=== PATIENT | male | born 1995 | race Caucasian/White ===

== ENCOUNTER 2016-12-10 15:20 | Inpatient (IN) | payer BC, OTHER ==
[~2016-12-10] VITALS: Ht 182.9 cm; Wt 109.9 kg
[~2016-12-10 15:20] MED LIST: INSU100V SQ
--- NOTE | 2016-12-10 15:43 | PHYS DOC ---
Past Medical History Past Medical History: Diabetes-Type I Past Surgical History: Other Additional Past Surgical Histo: L ANKLE Alcohol Use: None Drug Use: None Adult General HPI HPI Patient is a 21 year old male who presents with hypoglycemia. Patient is type I diabetic and has insulin pump. He reportedly became altered at home due to hypoglycemia. His father tried to give him frosting to eat and called 911. EMS reports on their arrival patient was combative; FSBS at that time was in 80s. They were unable to get IV started due to combativeness, however they did give IM glucagon. On arrival to ED patient's mental status improved, although he says he still feels a little confused. His R knee is mildly sore, otherwise he denies any other acute complaints. Review of Systems Review of Systems Constitutional: Denies fever or chills Eyes: Denies change in visual acuity or eye pain HENT: Denies nasal congestion or sore throat Respiratory: Denies cough or shortness of breath Cardiovascular: Denies chest pain GI: Denies abdominal pain, nausea, vomiting, bloody stools or diarrhea : Denies dysuria or hematuria Musculoskeletal: R knee sore. Denies back pain or other joint pain Integument: Denies rash or skin lesions Neurologic: AMS. Denies headache, focal weakness or sensory changes Current Medications Current Medications Current Medications Medications (Trade) Dose Ordered Sig/Jamal Start Time Stop Time Status Last Admin Dose Admin Acetaminophen (Tylenol) 650 mg PRN Q4HRS PRN 12/10/16 18:00 12/11/16 17:59 Dextrose 12.5 gm PRN Q15MIN PRN 12/10/16 18:00 Famotidine (Pepcid) 20 mg 1X ONCE 12/10/16 17:00 12/10/16 17:01 DC 12/10/16 18:40 20 MG Morphine Sulfate 2 mg PRN Q2HR PRN 12/10/16 18:00 12/11/16 17:59 Ondansetron HCl (Zofran) 4 mg PRN Q8HRS PRN 12/10/16 18:00 12/11/16 17:59 Allergies Allergies Allergies Coded Allergies Type Severity Reaction Last Updated Verified No Known Drug Allergies 01/18/15 No Physical Exam Physical Exam Constitutional: Well developed, well nourished, non-toxic appearance HENT: Normocephalic, atraumatic, bilateral external ears normal Eyes: PERRL, EOMI, conjunctiva normal, no discharge Neck: Normal range of motion, no stridor Cardiovascular: Heart rate normal, regular rhythm, no murmur Lungs & Thorax: Bilateral breath sounds clear to auscultation Abdomen: Bowel sounds normal, soft, non-distended, no TTP Skin: Warm, dry, no erythema, no rash Extremities: No obvious deformity, no edema; R knee visually unremarkable compared to L, no point TTP; neurovascularly intact throughout Neurologic: Slowed response but oriented X 3, GCS 15, CN II-XII grossly intact, strength intact and symmetrical throughout, sensation to light touch intact throughout, no dystaxia noted Current Patient Data Vital Signs Vital Signs Date Time Temp Pulse Resp B/P Pulse Ox O2 Delivery O2 Flow Rate FiO2 12/10/16 16:25 76 18 150/67 95 Room Air 12/10/16 15:42 97.7 97.7 Lab Values Laboratory Tests Test 12/10/16 15:42 12/10/16 15:51 12/10/16 16:19 White Blood Count 7.2x10^3/uL (4.0-11.0) Red Blood Count 5.32x10^6/uL (4.30-5.70) Hemoglobin 15.8g/dL (13.0-17.5) Hematocrit 46.9% (39.0-53.0) Mean Corpuscular Volume 88fL (79-100) Mean Corpuscular Hemoglobin 30pg (25-35) Mean Corpuscular Hemoglobin Concent 34g/dL (31-37) Red Cell Distribution Width 14.1% (11.5-14.5) Platelet Count 255x10^3/uL (140-400) Neutrophils (%) (Auto) 71% (31-73) Lymphocytes (%) (Auto) 20% (24-48) L Monocytes (%) (Auto) 7% (0-9) Eosinophils (%) (Auto) 1% (0-3) Basophils (%) (Auto) 0% (0-3) Neutrophils # (Auto) 5.1x10^3uL (1.8-7.7) Lymphocytes # (Auto) 1.5x10^3/uL (1.0-4.8) Monocytes # (Auto) 0.5x10^3/uL (0.0-1.1) Eosinophils # (Auto) 0.1x10^3/uL (0.0-0.7) Basophils # (Auto) 0.0x10^3/uL (0.0-0.2) Sodium Level 141mmol/L (136-145) Potassium Level 3.8mmol/L (3.5-5.1) Chloride Level 104mmol/L (98-107) Carbon Dioxide Level 22mmol/L (21-32) Anion Gap 15 (6-14) H Blood Urea Nitrogen 10mg/dL (8-26) Creatinine 1.2mg/dL (0.7-1.3) Estimated GFR (Cockcroft-Gault) 76.4 Glucose Level 215mg/dL (70-99) H Glucose (Fingerstick) 218mg/dL (70-99) H 196mg/dL (70-99) H Calcium Level 9.3mg/dL (8.5-10.1) Total Bilirubin 1.0mg/dL (0.2-1.0) Direct Bilirubin 0.1mg/dL (0.0-0.2) Aspartate Amino Transferase (AST) 34U/L (15-37) Alanine Aminotransferase (ALT) 33U/L (16-63) Alkaline Phosphatase 75U/L (46-116) Total Protein 7.6g/dL (6.4-8.2) Albumin 4.0g/dL (3.4-5.0) Laboratory Tests 12/10/16 15:42 Laboratory Tests 12/10/16 15:42 EKG EKG EKG (my read): sinus rhythm, rate 58, normal axis, intervals wnl except RR minimally prolonged at 1039ms, nonspecific ST changes Radiology/Procedures Radiology/Procedures CT head: IMPRESSION No acute intracranial abnormality is seen. CXR: IMPRESSION: No acute cardiopulmonary abnormality is detected. Course & Med Decision Making Course & Med Decision Making Pertinent Labs and Imaging studies reviewed. (See chart for details) Patient is 21 year old male who presents with AMS. Possibly due to hypoglycemia , however FSBS per EMS was ok (possibly had been lower before he was given frosting) and ok on arrival to ED. Will check labs, EKG to evaluate. While in ED patient had repeated vomiting and remains slightly confused, although he is oriented x3. Anti-emetic ordered, CXR and CT head ordered as well to further screen for alternate cause of AMS. Imaging results as above. Blood work largely unremarkable. Discussed results with patient and parents. Given persistent vomiting and confusion, will admit for further evaluation. Discussed with Dr. Quigley, will admit under her care. [place] Disclaimer Dragon Disclaimer This electronic medical record was generated, in whole or in part, using a voice recognition dictation system. Departure Departure Impression: Primary Impression: Altered mental status Disposition: 09 ADMITTED INPATIENT Admitting Physician: Other Condition: STABLE Referrals: CISCO JASON (PCP) GEORGE BHAKTA MD Dec 10, 2016 15:43
[2016-12-10 15:48] LABS: BASO % 0 % (0-3); EOS % 1 % (0-3); HEMATOCRIT 46.9 % (39.0-53.0); HEMOGLOBIN 15.8 g/dL (13.0-17.5); LYMPH # 1.5 x10^3/uL (1.0-4.8); LYMPH % 20 % (24-48); MEAN CORPUSCULAR HEMOGLOBIN 30 pg (25-35); MEAN CORPUSCULAR HGB CONC 34 g/dL (31-37); MEAN CORPUSCULAR VOLUME 88 fL (79-100); MONO % 7 % (0-9); NEUT % 71 % (31-73); PLATELET COUNT 255 x10^3/uL (140-400); RED BLOOD COUNT 5.32 x10^6/uL (4.30-5.70); RED CELL DISTRIBUTION WIDTH 14.1 % (11.5-14.5); WHITE BLOOD COUNT 7.2 x10^3/uL (4.0-11.0)
--- NOTE | 2016-12-10 16:02 | RAD ---
Portable chest, 12/10/2016: History: Altered mental status The heart size and pulmonary vascularity are normal. No pulmonary infiltrates are seen. There is no evidence of pleural fluid. IMPRESSION: No acute cardiopulmonary abnormality is detected.
[2016-12-10 16:17] LABS: DIRECT BILIRUBIN 0.1 mg/dL (0.0-0.2); TOTAL PROTEIN 7.6 g/dL (6.4-8.2)
[2016-12-10] MEDS ORDERED: ONDANSETRON PF 4 MG/2 ML VIAL. ONE (16:17)
[2016-12-10] MEDS ORDERED: ONDANSETRON PF 4 MG/2 ML VIAL. IV ONE ×2 (16:30→17:00)
[2016-12-10 16:47] LABS: CALCIUM 9.3 mg/dL (8.5-10.1); CREATININE 1.2 mg/dL (0.7-1.3); GFR 76.4; POTASSIUM 3.8 mmol/L (3.5-5.1)
[2016-12-10] MEDS ORDERED: FAMOTIDINE 20 MG/2 ML VIAL IVP ONE (17:00)
--- NOTE | 2016-12-10 17:30 | RAD ---
PROCEDURE CT head without contrast HISTORY Altered mental status TECHNIQUE Noncontrast axial cross sectional CT scanning of the head was performed. FINDINGS No acute intracranial hemorrhage or midline shift or mass-effect or hydrocephalus or extra-axial fluid collection is seen. No focal hypodense area is seen to indicate an acute infarct or edema radiographically. No skull fracture or pneumocephalus is seen. No opacification of the mastoid sinuses or the paranasal sinuses is seen. The maxillary sinuses are not completely seen in this study. IMPRESSION No acute intracranial abnormality is seen. Electronically signed by: Steve Gilman MD (Dec 10, 2016 17:29:09)
[2016-12-10] MEDS ORDERED: ACETAMINOPHEN 325 MG TABLET. PO PRN (18:00)
[2016-12-10] MEDS ORDERED: ONDANSETRON PF 4 MG/2 ML VIAL. IV PRN ×2 (18:00→23:15)
[2016-12-10] MEDS ORDERED: MORPHINE SULFATE 2 MG/ML DISP.SYRIN. IV PRN (18:00)
[2016-12-10] MEDS ORDERED: DEXTROSE 50% 25 GM / 50ML DISP.SYRIN. IV PRN ×2 (18:00→23:15)
[2016-12-10] MEDS ORDERED: PROCHLORPERAZINE 10 MG/2 ML VIAL. IV ONE (19:15)
[2016-12-10 20:20] LABS: BILIRUBIN,URINE NEGATIVE (NEG); GLUCOSE,URINE 500 mg/dL (NEG); NITRITE,URINE NEGATIVE (NEG); PROTEIN,URINE NEGATIVE (NEG-TRACE); UROBILINOGEN,URINE 0.2 mg/dL (0.2 mg/dL)
[2016-12-10 20:26] LABS: BARBITURATES NEG (NEG); BENZODIAZEPINES NEG (NEG); CANNABINOIDS NEG (NEG); COCAINE NEG (NEG); ETHANOL, URINE NEG (NEG); METHADONE NEG (NEG); OPIATES NEG (NEG); PHENCYCLIDINE NEG (NEG)
[2016-12-10 20:32] LABS: BACTERIA,URINE FEW /HPF (0-FEW); SQUAMOUS EPITHELIAL CELL,UR FEW /LPF
[2016-12-10] MEDS ORDERED: OMEP20TA PO (22:59)
[2016-12-10] MEDS ORDERED: ASA/APAP/CAFFEINE 250/250/65MG TABLET. PO PRN (23:45)
[2016-12-10] MEDS: METOCLOPRAMIDE HCL 10 MG/2 ML VIAL. IV SCH (23:45)
[2016-12-10] MEDS: POTASSIUM CHLORIDE 30 MEQ in IV 1/2 NORMAL SALINE 1,000 ML IV SCH (23:46)
--- NOTE | 2016-12-11 00:01 | HP ---
ADMIT DATE: 12/10/2016 CHIEF COMPLAINT: Nausea, vomiting, and hypoglycemia. HISTORY OF PRESENT ILLNESS: The patient is a 21-year-old gentleman with diabetes type 1 - onset at age 12, who presented to the Emergency Room with nausea and vomiting since earlier this morning. He relates that he was actually still in bed, more or less unconscious when his father came home at 2:00 in the afternoon and woke him up. He went down to the family room, sat on the couch, and passed out. Father brought him into the Emergency Room. At home, his blood sugar upon immediate checking actually had been 80. In the Emergency Room, his blood sugar actually was 215. He had retching and nausea without any honest vomiting. However, he had not been eating or drinking anything the entire day. He denies any fevers or chills, or any other problems. No sick contacts, was not out last night, and did not drink alcohol. PAST MEDICAL HISTORY: Diabetes mellitus type 1 since age 12, has insulin pump. FAMILY HISTORY: Mother with diabetes, adult-onset. SOCIAL HISTORY: He is a student, has taken this semester off. Denies any toxic habits. ALLERGIES: No known drug allergies. MEDICATIONS: MAR reviewed and reconciled with home medications. REVIEW OF SYSTEMS: Positive for nausea and vomiting as above. Generalized fatigue, malaise. No fevers. The rest of organ-system review is negative. PHYSICAL EXAMINATION: VITAL SIGNS: From today show a blood pressure of 150/67, heart rate of 76, and respiratory rate is 18. He is afebrile. GENERAL: This is an overweight 21-year-old gentleman, awake, alert, in no acute distress. HEENT: Shows no scleral icterus. NECK: Supple. LUNGS: Clear to auscultation bilaterally. CARDIOVASCULAR: Has regular rate and rhythm without any murmurs. ABDOMEN: Has positive bowel sounds, soft, and nontender. EXTREMITIES: Show no edema. Insulin pump is in his left lower abdomen. LABORATORY DATA: CBC from today shows a WBC of 7.2, hemoglobin 15.8, and platelets of 255. Chemistries with a BUN and creatinine of 10 and 1.2. Electrolytes within normal. Carbon dioxide at 22. Glucose is in the 200-300 range. LFTs within normal. Toxicology screen is completely negative. A UA is negative for infectious signs. IMAGING: CT of the head in the Emergency Room shows no acute intracranial abnormality. Chest x-ray likewise is within normal limits. ASSESSMENT AND PLAN: The patient is a 21-year-old gentleman, presenting after a fainting spell at home. If his initial blood sugar is to be believed, he actually was relatively low compared to now despite not having eaten anything over the past 24 hours. He may have had a hypoglycemic episode at the time, resulting in some confusion. Also, with ongoing symptoms, cannot rule out that he had a viral gastroenteritis, which may have led to dehydration and current symptoms. We will replete his fluids and electrolytes with IV for now. Keep him n.p.o. As Zofran in the ER was insufficient to control his nausea, we will start him on Reglan around the clock. He still has Zofran p.r.n., which can be alternated with Reglan as needed. We will monitor his blood glucoses. He would prefer insulin sliding scale and nurse-administered insulin. On questioning, he relates that he is taking 81 units of insulin per 24 hours. He is unable to tell me his sliding scale for meal doses, and cannot recall his last blood sugar test in the past few days or if he took his blood sugar this morning. For stomach protection, we will start him on PPI IV. We will re-evaluate in the morning and potentially get him discharged if all his symptoms are resolved. ZHANG LYNNE MD DR: MJ/jing JOB#: [id number] / [id number] RINKU
[2016-12-11 00:24] VITALS: BP 134/47
[2016-12-11 04:42] LABS: BASO % 0 % (0-3); EOS % 0 % (0-3); HEMOGLOBIN 14.6 g/dL (13.0-17.5); LYMPH # 0.7 x10^3/uL (1.0-4.8); LYMPH % 3 % (24-48); MEAN CORPUSCULAR HEMOGLOBIN 30 pg (25-35); MEAN CORPUSCULAR HGB CONC 34 g/dL (31-37); MEAN CORPUSCULAR VOLUME 87 fL (79-100); MONO % 7 % (0-9); NEUT % 90 % (31-73); PLATELET COUNT 282 x10^3/uL (140-400); RED BLOOD COUNT 4.93 x10^6/uL (4.30-5.70); RED CELL DISTRIBUTION WIDTH 13.9 % (11.5-14.5); WHITE BLOOD COUNT 19.5 x10^3/uL (4.0-11.0)
[2016-12-11 04:56] LABS: CALCIUM 9.3 mg/dL (8.5-10.1); CREATININE 1.5 mg/dL (0.7-1.3); GFR 59.1; POTASSIUM 4.8 mmol/L (3.5-5.1)
[2016-12-11] MEDS: POTASSIUM CHLORIDE 30 MEQ in IV 1/2 NORMAL SALINE 1,000 ML IV SCH ×2 (06:21→13:32)
[2016-12-11 07:14] LABS: PLT ESTIMATE ADEQUATE (ADEQUATE)
[2016-12-11 08:00] VITALS: BP 137/45
[2016-12-11] MEDS: INSULIN ASPART 300 UNITS/3 ML INSULN.PEN SQ SCH ×3 (08:00→17:00)
[2016-12-11] MEDS ORDERED: INSULIN ASPART 300 UNITS/3 ML INSULN.PEN SQ ONE ×4 (08:30→17:00)
[2016-12-11] MEDS: METOCLOPRAMIDE HCL 10 MG/2 ML VIAL. IV SCH ×3 (08:49→20:33)
[2016-12-11] MEDS: PANTOPRAZOLE IV PUSH 40 MG VIAL. IVP SCH (08:49)
--- NOTE | 2016-12-11 09:08 | EKG ---
[facility] [address] [place] [address] Test Date: 2016-12-10 Test Time: 16:09:14 Pat Name: OSCAR ARNOLD Department: Room: 4 Gender: M Qualitative Field Coordinator: : 1995 Requested By: GEORGE BHAKTA Order Number: [id number] Reading MD: Arielle Oliveros Measurements Intervals [place] Rate: 58 P: 28 CA: 176 QRS: 34 QRSD: 100 T: 28 QT: 386 QTc: 382 Interpretive Statements SINUS RHYTHM NO SPECIFIC ECG ABNORMALITIES RI6.01 No previous ECG available for comparison Electronically Signed On 12-11-2016 20:22:55 CDT by Arielle Oliveros
--- NOTE | 2016-12-11 09:57 | PDOC ---
PROGRESS NOTES Chief Complaint Chief Complaint cc: hypoglycemia A/P Severe Hypoglycemia, Now Hyperglycemia. Metabolic acidosis, not POA Leucocytosis, no POA Nausea and vomiting. Plan Insulin pump has been stopped IV Zofran and Reglan for nausea and vomiting IV NS at 150mls/hr BMP q2 hrs, monitor serum ketones and urine ketones No oblivious source of infection Monitor wbc Advance diet as tolerated. Transfer to ICU if any ketones present in the urine. Prognosis guarded, History of Present Illness History of Present Illness nausea and vomiting no fever no chills. Vitals Vitals Vital Signs Date Time Temp Pulse Resp B/P Pulse Ox O2 Delivery O2 Flow Rate FiO2 12/11/16 08:00 97.7 100 12 137/45 Room Air 96.0 97.7 12/11/16 03:54 98 Physical Exam General: Alert, Oriented X3 Heart: Normal S1, Normal S2 Lungs: Clear Abdomen: Normal bowel sounds, Soft Extremities: No clubbing Skin: No rashes Labs LABS Laboratory Tests Test 12/10/16 15:42 12/10/16 15:51 12/10/16 16:19 12/10/16 20:02 White Blood Count 7.2x10^3/uL (4.0-11.0) Red Blood Count 5.32x10^6/uL (4.30-5.70) Hemoglobin 15.8g/dL (13.0-17.5) Hematocrit 46.9% (39.0-53.0) Mean Corpuscular Volume 88fL (79-100) Mean Corpuscular Hemoglobin 30pg (25-35) Mean Corpuscular Hemoglobin Concent 34g/dL (31-37) Red Cell Distribution Width 14.1% (11.5-14.5) Platelet Count 255x10^3/uL (140-400) Neutrophils (%) (Auto) 71% (31-73) Lymphocytes (%) (Auto) 20% (24-48) Monocytes (%) (Auto) 7% (0-9) Eosinophils (%) (Auto) 1% (0-3) Basophils (%) (Auto) 0% (0-3) Neutrophils # (Auto) 5.1x10^3uL (1.8-7.7) Lymphocytes # (Auto) 1.5x10^3/uL (1.0-4.8) Monocytes # (Auto) 0.5x10^3/uL (0.0-1.1) Eosinophils # (Auto) 0.1x10^3/uL (0.0-0.7) Basophils # (Auto) 0.0x10^3/uL (0.0-0.2) Sodium Level 141mmol/L (136-145) Potassium Level 3.8mmol/L (3.5-5.1) Chloride Level 104mmol/L (98-107) Carbon Dioxide Level 22mmol/L (21-32) Anion Gap 15 (6-14) Blood Urea Nitrogen 10mg/dL (8-26) Creatinine 1.2mg/dL (0.7-1.3) Estimated GFR (Cockcroft-Gault) 76.4 Glucose Level 215mg/dL (70-99) Glucose (Fingerstick) 218mg/dL (70-99) 196mg/dL (70-99) Calcium Level 9.3mg/dL (8.5-10.1) Total Bilirubin 1.0mg/dL (0.2-1.0) Direct Bilirubin 0.1mg/dL (0.0-0.2) Aspartate Amino Transf (AST/SGOT) 34U/L (15-37) Alanine Aminotransferase (ALT/SGPT) 33U/L (16-63) Alkaline Phosphatase 75U/L (46-116) Total Protein 7.6g/dL (6.4-8.2) Albumin 4.0g/dL (3.4-5.0) Urine Collection Type Unknown Urine Color Yellow Urine Clarity Clear Urine pH 6.0 Urine Specific Christmas 1.025 Urine Protein Negativemg/dL (NEG-TRACE) Urine Glucose (UA) 500mg/dL (NEG) Urine Ketones (Stick) >=80mg/dL (NEG) Urine Blood Negative (NEG) Urine Nitrite Negative (NEG) Urine Bilirubin Negative (NEG) Urine Urobilinogen Dipstick 0.2mg/dL (0.2 mg/dL) Urine Leukocyte Esterase Negative (NEG) Urine RBC 3-5/HPF (0-2) Urine WBC 5-10/HPF (0-4) Urine Squamous Epithelial Cells Few/LPF Urine Bacteria Few/HPF (0-FEW) Urine Hyaline Casts Many/HPF Urine Mucus Marked/LPF Urine Opiates Screen Neg (NEG) Urine Methadone Screen Neg (NEG) Urine Barbiturates Neg (NEG) Urine Phencyclidine Screen Neg (NEG) Urine Amphetamine/Methamphetamine Neg (NEG) Urine Benzodiazepines Screen Neg (NEG) Urine Cocaine Screen Neg (NEG) Urine Cannabinoids Screen Neg (NEG) Urine Ethyl Alcohol Neg (NEG) Test 12/10/16 21:20 12/11/16 03:20 12/11/16 08:13 Glucose (Fingerstick) 306mg/dL (70-99) 481mg/dL (70-99) White Blood Count 19.5x10^3/uL (4.0-11.0) Red Blood Count 4.93x10^6/uL (4.30-5.70) Hemoglobin 14.6g/dL (13.0-17.5) Hematocrit 43.0% (39.0-53.0) Mean Corpuscular Volume 87fL (79-100) Mean Corpuscular Hemoglobin 30pg (25-35) Mean Corpuscular Hemoglobin Concent 34g/dL (31-37) Red Cell Distribution Width 13.9% (11.5-14.5) Platelet Count 282x10^3/uL (140-400) Neutrophils (%) (Auto) 90% (31-73) Lymphocytes (%) (Auto) 3% (24-48) Monocytes (%) (Auto) 7% (0-9) Eosinophils (%) (Auto) 0% (0-3) Basophils (%) (Auto) 0% (0-3) Neutrophils # (Auto) 17.5x10^3uL (1.8-7.7) Lymphocytes # (Auto) 0.7x10^3/uL (1.0-4.8) Monocytes # (Auto) 1.4x10^3/uL (0.0-1.1) Eosinophils # (Auto) 0.0x10^3/uL (0.0-0.7) Basophils # (Auto) 0.0x10^3/uL (0.0-0.2) Segmented Neutrophils % 90% (35-66) Band Neutrophils % 4% (0-9) Lymphocytes % 4% (24-48) Monocytes % 2% (0-10) Platelet Estimate Adequate (ADEQUATE) Sodium Level 136mmol/L (136-145) Potassium Level 4.8mmol/L (3.5-5.1) Chloride Level 98mmol/L (98-107) Carbon Dioxide Level 20mmol/L (21-32) Anion Gap 18 (6-14) Blood Urea Nitrogen 22mg/dL (8-26) Creatinine 1.5mg/dL (0.7-1.3) Estimated GFR (Cockcroft-Gault) 59.1 Glucose Level 364mg/dL (70-99) Calcium Level 9.3mg/dL (8.5-10.1) Assessment and Plan Assessmemt and Plan Problems Medical Problems: (1) Altered mental status Status: Acute Problems: Comment Review of Relevant I have reviewed the following items fernando (where applicable) has been applied. Labs Laboratory Tests Test 12/10/16 15:42 12/10/16 15:51 12/10/16 16:19 12/10/16 20:02 White Blood Count 7.2x10^3/uL (4.0-11.0) Red Blood Count 5.32x10^6/uL (4.30-5.70) Hemoglobin 15.8g/dL (13.0-17.5) Hematocrit 46.9% (39.0-53.0) Mean Corpuscular Volume 88fL (79-100) Mean Corpuscular Hemoglobin 30pg (25-35) Mean Corpuscular Hemoglobin Concent 34g/dL (31-37) Red Cell Distribution Width 14.1% (11.5-14.5) Platelet Count 255x10^3/uL (140-400) Neutrophils (%) (Auto) 71% (31-73) Lymphocytes (%) (Auto) 20% (24-48) Monocytes (%) (Auto) 7% (0-9) Eosinophils (%) (Auto) 1% (0-3) Basophils (%) (Auto) 0% (0-3) Neutrophils # (Auto) 5.1x10^3uL (1.8-7.7) Lymphocytes # (Auto) 1.5x10^3/uL (1.0-4.8) Monocytes # (Auto) 0.5x10^3/uL (0.0-1.1) Eosinophils # (Auto) 0.1x10^3/uL (0.0-0.7) Basophils # (Auto) 0.0x10^3/uL (0.0-0.2) Sodium Level 141mmol/L (136-145) Potassium Level 3.8mmol/L (3.5-5.1) Chloride Level 104mmol/L (98-107) Carbon Dioxide Level 22mmol/L (21-32) Anion Gap 15 (6-14) Blood Urea Nitrogen 10mg/dL (8-26) Creatinine 1.2mg/dL (0.7-1.3) Estimated GFR (Cockcroft-Gault) 76.4 Glucose Level 215mg/dL (70-99) Glucose (Fingerstick) 218mg/dL (70-99) 196mg/dL (70-99) Calcium Level 9.3mg/dL (8.5-10.1) Total Bilirubin 1.0mg/dL (0.2-1.0) Direct Bilirubin 0.1mg/dL (0.0-0.2) Aspartate Amino Transf (AST/SGOT) 34U/L (15-37) Alanine Aminotransferase (ALT/SGPT) 33U/L (16-63) Alkaline Phosphatase 75U/L (46-116) Total Protein 7.6g/dL (6.4-8.2) Albumin 4.0g/dL (3.4-5.0) Urine Collection Type Unknown Urine Color Yellow Urine Clarity Clear Urine pH 6.0 Urine Specific Christmas 1.025 Urine Protein Negativemg/dL (NEG-TRACE) Urine Glucose (UA) 500mg/dL (NEG) Urine Ketones (Stick) >=80mg/dL (NEG) Urine Blood Negative (NEG) Urine Nitrite Negative (NEG) Urine Bilirubin Negative (NEG) Urine Urobilinogen Dipstick 0.2mg/dL (0.2 mg/dL) Urine Leukocyte Esterase Negative (NEG) Urine RBC 3-5/HPF (0-2) Urine WBC 5-10/HPF (0-4) Urine Squamous Epithelial Cells Few/LPF Urine Bacteria Few/HPF (0-FEW) Urine Hyaline Casts Many/HPF Urine Mucus Marked/LPF Urine Opiates Screen Neg (NEG) Urine Methadone Screen Neg (NEG) Urine Barbiturates Neg (NEG) Urine Phencyclidine Screen Neg (NEG) Urine Amphetamine/Methamphetamine Neg (NEG) Urine Benzodiazepines Screen Neg (NEG) Urine Cocaine Screen Neg (NEG) Urine Cannabinoids Screen Neg (NEG) Urine Ethyl Alcohol Neg (NEG) Test 12/10/16 21:20 12/11/16 03:20 12/11/16 08:13 Glucose (Fingerstick) 306mg/dL (70-99) 481mg/dL (70-99) White Blood Count 19.5x10^3/uL (4.0-11.0) Red Blood Count 4.93x10^6/uL (4.30-5.70) Hemoglobin 14.6g/dL (13.0-17.5) Hematocrit 43.0% (39.0-53.0) Mean Corpuscular Volume 87fL (79-100) Mean Corpuscular Hemoglobin 30pg (25-35) Mean Corpuscular Hemoglobin Concent 34g/dL (31-37) Red Cell Distribution Width 13.9% (11.5-14.5) Platelet Count 282x10^3/uL (140-400) Neutrophils (%) (Auto) 90% (31-73) Lymphocytes (%) (Auto) 3% (24-48) Monocytes (%) (Auto) 7% (0-9) Eosinophils (%) (Auto) 0% (0-3) Basophils (%) (Auto) 0% (0-3) Neutrophils # (Auto) 17.5x10^3uL (1.8-7.7) Lymphocytes # (Auto) 0.7x10^3/uL (1.0-4.8) Monocytes # (Auto) 1.4x10^3/uL (0.0-1.1) Eosinophils # (Auto) 0.0x10^3/uL (0.0-0.7) Basophils # (Auto) 0.0x10^3/uL (0.0-0.2) Segmented Neutrophils % 90% (35-66) Band Neutrophils % 4% (0-9) Lymphocytes % 4% (24-48) Monocytes % 2% (0-10) Platelet Estimate Adequate (ADEQUATE) Sodium Level 136mmol/L (136-145) Potassium Level 4.8mmol/L (3.5-5.1) Chloride Level 98mmol/L (98-107) Carbon Dioxide Level 20mmol/L (21-32) Anion Gap 18 (6-14) Blood Urea Nitrogen 22mg/dL (8-26) Creatinine 1.5mg/dL (0.7-1.3) Estimated GFR (Cockcroft-Gault) 59.1 Glucose Level 364mg/dL (70-99) Calcium Level 9.3mg/dL (8.5-10.1) Laboratory Tests Test 12/10/16 15:42 12/10/16 15:51 12/10/16 16:19 12/10/16 20:02 White Blood Count 7.2x10^3/uL (4.0-11.0) Red Blood Count 5.32x10^6/uL (4.30-5.70) Hemoglobin 15.8g/dL (13.0-17.5) Hematocrit 46.9% (39.0-53.0) Mean Corpuscular Volume 88fL (79-100) Mean Corpuscular Hemoglobin 30pg (25-35) Mean Corpuscular Hemoglobin Concent 34g/dL (31-37) Red Cell Distribution Width 14.1% (11.5-14.5) Platelet Count 255x10^3/uL (140-400) Neutrophils (%) (Auto) 71% (31-73) Lymphocytes (%) (Auto) 20% (24-48) Monocytes (%) (Auto) 7% (0-9) Eosinophils (%) (Auto) 1% (0-3) Basophils (%) (Auto) 0% (0-3) Neutrophils # (Auto) 5.1x10^3uL (1.8-7.7) Lymphocytes # (Auto) 1.5x10^3/uL (1.0-4.8) Monocytes # (Auto) 0.5x10^3/uL (0.0-1.1) Eosinophils # (Auto) 0.1x10^3/uL (0.0-0.7) Basophils # (Auto) 0.0x10^3/uL (0.0-0.2) Sodium Level 141mmol/L (136-145) Potassium Level 3.8mmol/L (3.5-5.1) Chloride Level 104mmol/L (98-107) Carbon Dioxide Level 22mmol/L (21-32) Anion Gap 15 (6-14) Blood Urea Nitrogen 10mg/dL (8-26) Creatinine 1.2mg/dL (0.7-1.3) Estimated GFR (Cockcroft-Gault) 76.4 Glucose Level 215mg/dL (70-99) Glucose (Fingerstick) 218mg/dL (70-99) 196mg/dL (70-99) Calcium Level 9.3mg/dL (8.5-10.1) Total Bilirubin 1.0mg/dL (0.2-1.0) Direct Bilirubin 0.1mg/dL (0.0-0.2) Aspartate Amino Transf (AST/SGOT) 34U/L (15-37) Alanine Aminotransferase (ALT/SGPT) 33U/L (16-63) Alkaline Phosphatase 75U/L (46-116) Total Protein 7.6g/dL (6.4-8.2) Albumin 4.0g/dL (3.4-5.0) Urine Collection Type Unknown Urine Color Yellow Urine Clarity Clear Urine pH 6.0 Urine Specific Christmas 1.025 Urine Protein Negativemg/dL (NEG-TRACE) Urine Glucose (UA) 500mg/dL (NEG) Urine Ketones (Stick) >=80mg/dL (NEG) Urine Blood Negative (NEG) Urine Nitrite Negative (NEG) Urine Bilirubin Negative (NEG) Urine Urobilinogen Dipstick 0.2mg/dL (0.2 mg/dL) Urine Leukocyte Esterase Negative (NEG) Urine RBC 3-5/HPF (0-2) Urine WBC 5-10/HPF (0-4) Urine Squamous Epithelial Cells Few/LPF Urine Bacteria Few/HPF (0-FEW) Urine Hyaline Casts Many/HPF Urine Mucus Marked/LPF Urine Opiates Screen Neg (NEG) Urine Methadone Screen Neg (NEG) Urine Barbiturates Neg (NEG) Urine Phencyclidine Screen Neg (NEG) Urine Amphetamine/Methamphetamine Neg (NEG) Urine Benzodiazepines Screen Neg (NEG) Urine Cocaine Screen Neg (NEG) Urine Cannabinoids Screen Neg (NEG) Urine Ethyl Alcohol Neg (NEG) Test 12/10/16 21:20 12/11/16 03:20 12/11/16 08:13 Glucose (Fingerstick) 306mg/dL (70-99) 481mg/dL (70-99) White Blood Count 19.5x10^3/uL (4.0-11.0) Red Blood Count 4.93x10^6/uL (4.30-5.70) Hemoglobin 14.6g/dL (13.0-17.5) Hematocrit 43.0% (39.0-53.0) Mean Corpuscular Volume 87fL (79-100) Mean Corpuscular Hemoglobin 30pg (25-35) Mean Corpuscular Hemoglobin Concent 34g/dL (31-37) Red Cell Distribution Width 13.9% (11.5-14.5) Platelet Count 282x10^3/uL (140-400) Neutrophils (%) (Auto) 90% (31-73) Lymphocytes (%) (Auto) 3% (24-48) Monocytes (%) (Auto) 7% (0-9) Eosinophils (%) (Auto) 0% (0-3) Basophils (%) (Auto) 0% (0-3) Neutrophils # (Auto) 17.5x10^3uL (1.8-7.7) Lymphocytes # (Auto) 0.7x10^3/uL (1.0-4.8) Monocytes # (Auto) 1.4x10^3/uL (0.0-1.1) Eosinophils # (Auto) 0.0x10^3/uL (0.0-0.7) Basophils # (Auto) 0.0x10^3/uL (0.0-0.2) Segmented Neutrophils % 90% (35-66) Band Neutrophils % 4% (0-9) Lymphocytes % 4% (24-48) Monocytes % 2% (0-10) Platelet Estimate Adequate (ADEQUATE) Sodium Level 136mmol/L (136-145) Potassium Level 4.8mmol/L (3.5-5.1) Chloride Level 98mmol/L (98-107) Carbon Dioxide Level 20mmol/L (21-32) Anion Gap 18 (6-14) Blood Urea Nitrogen 22mg/dL (8-26) Creatinine 1.5mg/dL (0.7-1.3) Estimated GFR (Cockcroft-Gault) 59.1 Glucose Level 364mg/dL (70-99) Calcium Level 9.3mg/dL (8.5-10.1) Medications Current Medications Ondansetron HCl (Zofran) 4 mg STK-MED ONCE .ROUTE ; Start 12/10/16 at 16:17; Stop 12/10/16 at 16:18; Status DC Ondansetron HCl (Zofran) 4 mg 1X ONCE IV Last administered on 12/10/16 16:20 ; Start 12/10/16 at 16:30; Stop 12/10/16 at 16:31; Status DC Famotidine (Pepcid) 20 mg 1X ONCE IVP Last administered on 12/10/16 18:40; Start 12/10/16 at 17:00; Stop 12/10/16 at 17:01; Status DC Ondansetron HCl (Zofran) 4 mg 1X ONCE IV ; Start 12/10/16 at 17:00; Stop at 17:01; Status DC Ondansetron HCl (Zofran) 4 mg PRN Q8HRS PRN IV NAUSEA/VOMITING; Start 12/10/16 at 18:00; Stop 12/10/16 at 23:13; Status DC Morphine Sulfate 2 mg PRN Q2HR PRN IV PAIN; Start 12/10/16 at 18:00; Stop 12/11 at 17:59 Acetaminophen (Tylenol) 650 mg PRN Q4HRS PRN PO FEVER Last administered on 12/10 21:33; Start 12/10/16 at 18:00; Stop 12/11/16 at 17:59 Insulin Aspart (Novolog) 0-7 UNITS TIDWMEALS SQ ; Start 12/11/16 at 08:00 Dextrose 12.5 gm PRN Q15MIN PRN IV SEE COMMENTS; Start 12/10/16 at 18:00; Stop 12/10/16 at 23:12; Status DC Prochlorperazine Edisylate 5 mg 5 mg 1X ONCE IV Last administered on 19:28; Start 12/10/16 at 19:15; Stop 12/10/16 at 19:16; Status DC Potassium Chloride/Sodium Chloride (Iv Sodium Chloride 0.45%) 1,015 ml @ 150 mls/hr Q6H46M IV Last administered on 12/11/16 06:21; Start 12/11/16 at 00:00 Metoclopramide HCl (Reglan) 10 mg TID IV Last administered on 12/11/16 08:49; Start 12/10/16 at 23:30 Dextrose 12.5 gm PRN Q15MIN PRN IV SEE COMMENTS; Start 12/10/16 at 23:15 Ondansetron HCl (Zofran) 8 mg PRN Q8HRS PRN IV NAUSEA/VOMITING; Start 12/10/16 at 23:15 Pantoprazole Sodium (Protonix Vial) 40 mg DAILYAC IVP Last administered on 12/11 08:49; Start 12/11/16 at 07:30 Acetaminophen/ Aspirin/Caffeine (Excedrin Migraine) 1 tab PRN Q6HRS PRN PO MIGRAINE HEADACHE; Start 12/10/16 at 23:45 Insulin Aspart (Novolog) 8 units 1X ONCE SQ Last administered on 12/11/16 00: 42; Start 12/11/16 at 00:00; Stop 12/11/16 at 00:01; Status DC Insulin Aspart (Novolog) 25 units 1X ONCE SQ Last administered on 12/11/16 08 :52; Start 12/11/16 at 08:30; Stop 12/11/16 at 08:31; Status DC Active Scripts Active Reported Omeprazole 20 Mg Tablet. 1 Tab PO DAILY Humalog (Insulin Lispro) 100 Unit/1 Ml Vial 100 Unit SQ Vitals/I & O Vital Sign - Last 24 Hours 12/10/16 12/10/16 12/10/16 12/10/16 15:42 15:45 16:05 16:25 Temp 97.7 97.7 Pulse 84 78 72 76 Resp 18 13 08 18 B/P 159/72 135/71 155/68 150/67 Pulse Ox 98 95 96 95 O2 Delivery Room Air Room Air Room Air Room Air 12/10/16 12/10/16 12/10/16 12/10/16 19:00 19:30 20:00 20:30 Pulse 92 86 70 Resp 25 22 21 B/P 133/57 140/100 130/81 129/60 Pulse Ox 98 99 98 12/10/16 12/11/16 12/11/16 12/11/16 23:25 00:24 01:01 03:54 Temp 97.7 97.7 Pulse 90 Resp 16 B/P 134/47 Pulse Ox 98 98 98 O2 Delivery Room Air Room Air 12/11/16 08:00 Temp 97.7 97.7 Pulse 100 Resp 12 B/P 137/45 O2 Delivery Room Air O2 Flow Rate 96.0 Intake and Output 12/10/16 12/10/16 12/11/16 15:00 23:00 07:00 Output Total 300 ml Balance -300 ml NICK OBRIEN MD Dec 11, 2016 09:57
[2016-12-11] MEDS ORDERED: INSULIN DETEMIR 300 UNITS/3 ML INSULN.PEN. SQ ONE (10:30)
[2016-12-11 11:00] VITALS: BP 127/65
[2016-12-11 12:17] LABS: CALCIUM 9.3 mg/dL (8.5-10.1); CREATININE 1.7 mg/dL (0.7-1.3); GFR 51.1; POTASSIUM 4.7 mmol/L (3.5-5.1)
[2016-12-11 15:00] VITALS: BP 150/73
[2016-12-11] MEDS ORDERED: DEXTROSE 50% 25 GM / 50ML DISP.SYRIN. IV PRN (15:15)
[2016-12-11 15:43] LABS: BASO # 0.1 x10^3/uL (0.0-0.2); BASO % 0 % (0-3); EOS % 0 % (0-3); HEMATOCRIT 41.3 % (39.0-53.0); HEMOGLOBIN 13.8 g/dL (13.0-17.5); LYMPH # 1.9 x10^3/uL (1.0-4.8); LYMPH % 10 % (24-48); MEAN CORPUSCULAR HEMOGLOBIN 30 pg (25-35); MEAN CORPUSCULAR HGB CONC 34 g/dL (31-37); MEAN CORPUSCULAR VOLUME 89 fL (79-100); MONO % 12 % (0-9); NEUT % 78 % (31-73); PLATELET COUNT 269 x10^3/uL (140-400); RED BLOOD COUNT 4.65 x10^6/uL (4.30-5.70); WHITE BLOOD COUNT 18.5 x10^3/uL (4.0-11.0)
[2016-12-11] MEDS: IV NORMAL SALINE 1000ML BAG 1,000 ML IV SCH ×2 (15:46→23:16)
[2016-12-11 15:52] LABS: CALCIUM 9.4 mg/dL (8.5-10.1); CREATININE 1.6 mg/dL (0.7-1.3); GFR 54.8; POTASSIUM 5.2 mmol/L (3.5-5.1)
[2016-12-11 19:35] VITALS: BP 139/73
[2016-12-11] MEDS ORDERED: INSULIN ASPART 300 UNITS/3 ML INSULN.PEN SQ STA (20:47)
[2016-12-12 03:35] VITALS: BP 133/64
[2016-12-12 06:11] LABS: CALCIUM 8.9 mg/dL (8.5-10.1); CREATININE 1.1 mg/dL (0.7-1.3); GFR 84.5; POTASSIUM 5.1 mmol/L (3.5-5.1)
--- NOTE | 2016-12-12 06:12 | ACF ---
Admission Forms Criteria MENTAL STATUS CHANGE Clinical Indications for Inpatient Care (Place 'X' for any and all applicable criteria): Ongoing inpatient care may be needed for ANY ONE of the following(1)(2)(3)(5)(6) : [X]I. Suspected serious etiology (eg, medical disorder, MANAGER REGIONAL event) of mental status change [ ]II. Danger to self or others not manageable at lower level of care [ ]III. Grave disability (eg, inability to perform self care necessary at lower level of care) [ ]IV. Agitation or inappropriate behavior interfering with care for primary condition (eg, attempting to discontinue lines or drains prematurely, unable to cooperate with respiratory care) [ ]V. Delirium [A] [D][E] as described by ANY ONE of the following(26): [ ]a) Delirium due to alcohol or sedative [F] withdrawal [ ]b) Delirium of uncertain etiology that has not responded to appropriate empiric treatment [ ]c) Delirium that prevents performance of a life-sustaining function (eg, feeding or hydrating oneself) [ ]. General contraindications and/or Inappropriate clinical situations for Observational Care in patients with Mental Status Change, when ANY ONE of the following is required: [ ]a) Prediction of prolongation of LOS based on ANY ONE of the following may be considered as a contraindication for observational care 2, 3, 4, 5, 6, 7, 8, 9, 10, 11 [ ]i) Age > 65 yrs. [ ]ii) Patient arriving by ambulance [ ]iii) Patient with high acuity [ ]iv) Patient requiring vital sign monitoring [ ]v) Patient on IV medication [ ]b) Systolic blood pressures 180mmHg 3,12 [ ]c) Patient with altered mental status including delirium and other alteration of consciousness, (3) [ ]d) Patient whose discharge disposition will be to a fpc home or rehabilitation home should not be managed in Emergency Department Observation Unit. CMS rule requires 3 days hospital stay before such placement.3,13 [ ]e) Patient with failure to thrive due to broad array of etiologies 3,16,17 [ ]f) Inability to ambulate 3,14 Extended stay beyond goal length of stay for the primary condition may be needed until ALL of the following are present(3)(5): [ ]a) Underlying medical etiology of mental status change is absent, or has been established and adequately treated [ ]b) Danger to self or others is absent or manageable at lower level of care. [ ]c) Behavior crisis management, including physical or chemical restraints, is not required or available at lower level of car [ ]d) Substance or alcohol withdrawal is absent or manageable at lower level of care. [ ]e) Behavioral symptoms (eg, agitation, somnolence, inappropriate behavior) are absent, or are manageable at lower level of care. The [email or web address] content created by [facility] has been revised. The portions of the content which have been revised are identified through the use of italic text or in bold, and [facility] has neither reviewed nor approved the modified material. All other unmodified content is copyright [facility]. Please see references footnoted in the original [facility] edition 2016 Admission Criteria Met?: Yes LOLY CAMPOS Dec 12, 2016 06:12
[2016-12-12] MEDS: IV NORMAL SALINE 1000ML BAG 1,000 ML IV SCH ×2 (06:16→11:30)
[2016-12-12] MEDS ORDERED: INSULIN ASPART 300 UNITS/3 ML INSULN.PEN SQ ONE (06:30)
[2016-12-12 07:00] VITALS: BP 130/75
--- NOTE | 2016-12-12 07:09 | PDOC ---
PROGRESS NOTES Chief Complaint Chief Complaint cc: hypoglycemia A/P Severe Hypoglycemia, Now Hyperglycemia. Metabolic acidosis, not POA Leucocytosis, no POA resolved, likely dehydration. Nausea and vomiting. Plan Insulin pump restarted, IV Zofran and Reglan for nausea and vomiting IV hydration Blood glucose q 2hrs prn If Blood sugars controlled, he can go home this evening. History of Present Illness History of Present Illness nausea and vomiting no fever no chills. Vitals Vitals Vital Signs Date Time Temp Pulse Resp B/P Pulse Ox O2 Delivery O2 Flow Rate FiO2 12/12/16 03:35 97.7 89 16 133/64 96 Room Air 97.7 12/11/16 11:00 94.0 Physical Exam General: Alert, Oriented X3 Heart: Normal S1, Normal S2 Lungs: Clear Abdomen: Normal bowel sounds, Soft Extremities: No clubbing Skin: No rashes Labs LABS Laboratory Tests Test 12/11/16 08:13 12/11/16 10:33 12/11/16 11:36 12/11/16 11:55 Glucose (Fingerstick) 481mg/dL (70-99) 459mg/dL (70-99) 395mg/dL (70-99) Sodium Level 135mmol/L (136-145) Potassium Level 4.7mmol/L (3.5-5.1) Chloride Level 99mmol/L (98-107) Carbon Dioxide Level 20mmol/L (21-32) Anion Gap 16 (6-14) Blood Urea Nitrogen 30mg/dL (8-26) Creatinine 1.7mg/dL (0.7-1.3) Estimated GFR (Cockcroft-Gault) 51.1 Glucose Level 399mg/dL (70-99) Calcium Level 9.3mg/dL (8.5-10.1) Test 12/11/16 12:15 12/11/16 13:20 12/11/16 15:35 12/11/16 16:07 Urine Ketones (Stick) >=80mg/dL (NEG) Glucose (Fingerstick) 399mg/dL (70-99) 434mg/dL (70-99) White Blood Count 18.5x10^3/uL (4.0-11.0) Red Blood Count 4.65x10^6/uL (4.30-5.70) Hemoglobin 13.8g/dL (13.0-17.5) Hematocrit 41.3% (39.0-53.0) Mean Corpuscular Volume 89fL (79-100) Mean Corpuscular Hemoglobin 30pg (25-35) Mean Corpuscular Hemoglobin Concent 34g/dL (31-37) Red Cell Distribution Width 14.0% (11.5-14.5) Platelet Count 269x10^3/uL (140-400) Neutrophils (%) (Auto) 78% (31-73) Lymphocytes (%) (Auto) 10% (24-48) Monocytes (%) (Auto) 12% (0-9) Eosinophils (%) (Auto) 0% (0-3) Basophils (%) (Auto) 0% (0-3) Neutrophils # (Auto) 14.4x10^3uL (1.8-7.7) Lymphocytes # (Auto) 1.9x10^3/uL (1.0-4.8) Monocytes # (Auto) 2.1x10^3/uL (0.0-1.1) Eosinophils # (Auto) 0.0x10^3/uL (0.0-0.7) Basophils # (Auto) 0.1x10^3/uL (0.0-0.2) Sodium Level 134mmol/L (136-145) Potassium Level 5.2mmol/L (3.5-5.1) Chloride Level 99mmol/L (98-107) Carbon Dioxide Level 22mmol/L (21-32) Anion Gap 13 (6-14) Blood Urea Nitrogen 31mg/dL (8-26) Creatinine 1.6mg/dL (0.7-1.3) Estimated GFR (Cockcroft-Gault) 54.8 Glucose Level 431mg/dL (70-99) Calcium Level 9.4mg/dL (8.5-10.1) Test 12/11/16 18:16 12/11/16 20:40 12/11/16 21:30 12/12/16 01:55 Glucose (Fingerstick) 376mg/dL (70-99) 379mg/dL (70-99) 327mg/dL (70-99) 226mg/dL (70-99) Test 12/12/16 05:00 12/12/16 05:42 12/12/16 06:50 Sodium Level 138mmol/L (136-145) Potassium Level 5.1mmol/L (3.5-5.1) Chloride Level 101mmol/L (98-107) Carbon Dioxide Level 25mmol/L (21-32) Anion Gap 12 (6-14) Blood Urea Nitrogen 19mg/dL (8-26) Creatinine 1.1mg/dL (0.7-1.3) Estimated GFR (Cockcroft-Gault) 84.5 Glucose Level 365mg/dL (70-99) Calcium Level 8.9mg/dL (8.5-10.1) Glucose (Fingerstick) 413mg/dL (70-99) 364mg/dL (70-99) Assessment and Plan Assessmemt and Plan Problems Medical Problems: (1) Altered mental status Status: Acute Problems: Comment Review of Relevant I have reviewed the following items fernando (where applicable) has been applied. Labs Laboratory Tests Test 12/10/16 15:42 12/10/16 15:51 12/10/16 16:19 12/10/16 20:02 White Blood Count 7.2x10^3/uL (4.0-11.0) Red Blood Count 5.32x10^6/uL (4.30-5.70) Hemoglobin 15.8g/dL (13.0-17.5) Hematocrit 46.9% (39.0-53.0) Mean Corpuscular Volume 88fL (79-100) Mean Corpuscular Hemoglobin 30pg (25-35) Mean Corpuscular Hemoglobin Concent 34g/dL (31-37) Red Cell Distribution Width 14.1% (11.5-14.5) Platelet Count 255x10^3/uL (140-400) Neutrophils (%) (Auto) 71% (31-73) Lymphocytes (%) (Auto) 20% (24-48) Monocytes (%) (Auto) 7% (0-9) Eosinophils (%) (Auto) 1% (0-3) Basophils (%) (Auto) 0% (0-3) Neutrophils # (Auto) 5.1x10^3uL (1.8-7.7) Lymphocytes # (Auto) 1.5x10^3/uL (1.0-4.8) Monocytes # (Auto) 0.5x10^3/uL (0.0-1.1) Eosinophils # (Auto) 0.1x10^3/uL (0.0-0.7) Basophils # (Auto) 0.0x10^3/uL (0.0-0.2) Sodium Level 141mmol/L (136-145) Potassium Level 3.8mmol/L (3.5-5.1) Chloride Level 104mmol/L (98-107) Carbon Dioxide Level 22mmol/L (21-32) Anion Gap 15 (6-14) Blood Urea Nitrogen 10mg/dL (8-26) Creatinine 1.2mg/dL (0.7-1.3) Estimated GFR (Cockcroft-Gault) 76.4 Glucose Level 215mg/dL (70-99) Glucose (Fingerstick) 218mg/dL (70-99) 196mg/dL (70-99) Hemoglobin A1c 6.7% (4.8-5.6) Calcium Level 9.3mg/dL (8.5-10.1) Total Bilirubin 1.0mg/dL (0.2-1.0) Direct Bilirubin 0.1mg/dL (0.0-0.2) Aspartate Amino Transf (AST/SGOT) 34U/L (15-37) Alanine Aminotransferase (ALT/SGPT) 33U/L (16-63) Alkaline Phosphatase 75U/L (46-116) Total Protein 7.6g/dL (6.4-8.2) Albumin 4.0g/dL (3.4-5.0) Urine Collection Type Unknown Urine Color Yellow Urine Clarity Clear Urine pH 6.0 Urine Specific [place] 1.025 Urine Protein Negativemg/dL (NEG-TRACE) Urine Glucose (UA) 500mg/dL (NEG) Urine Ketones (Stick) >=80mg/dL (NEG) Urine Blood Negative (NEG) Urine Nitrite Negative (NEG) Urine Bilirubin Negative (NEG) Urine Urobilinogen Dipstick 0.2mg/dL (0.2 mg/dL) Urine Leukocyte Esterase Negative (NEG) Urine RBC 3-5/HPF (0-2) Urine WBC 5-10/HPF (0-4) Urine Squamous Epithelial Cells Few/LPF Urine Bacteria Few/HPF (0-FEW) Urine Hyaline Casts Many/HPF Urine Mucus Marked/LPF Urine Opiates Screen Neg (NEG) Urine Methadone Screen Neg (NEG) Urine Barbiturates Neg (NEG) Urine Phencyclidine Screen Neg (NEG) Urine Amphetamine/Methamphetamine Neg (NEG) Urine Benzodiazepines Screen Neg (NEG) Urine Cocaine Screen Neg (NEG) Urine Cannabinoids Screen Neg (NEG) Urine Ethyl Alcohol Neg (NEG) Test 12/10/16 21:20 12/11/16 03:20 12/11/16 08:13 12/11/16 10:33 Glucose (Fingerstick) 306mg/dL (70-99) 481mg/dL (70-99) 459mg/dL (70-99) White Blood Count 19.5x10^3/uL (4.0-11.0) Red Blood Count 4.93x10^6/uL (4.30-5.70) Hemoglobin 14.6g/dL (13.0-17.5) Hematocrit 43.0% (39.0-53.0) Mean Corpuscular Volume 87fL (79-100) Mean Corpuscular Hemoglobin 30pg (25-35) Mean Corpuscular Hemoglobin Concent 34g/dL (31-37) Red Cell Distribution Width 13.9% (11.5-14.5) Platelet Count 282x10^3/uL (140-400) Neutrophils (%) (Auto) 90% (31-73) Lymphocytes (%) (Auto) 3% (24-48) Monocytes (%) (Auto) 7% (0-9) Eosinophils (%) (Auto) 0% (0-3) Basophils (%) (Auto) 0% (0-3) Neutrophils # (Auto) 17.5x10^3uL (1.8-7.7) Lymphocytes # (Auto) 0.7x10^3/uL (1.0-4.8) Monocytes # (Auto) 1.4x10^3/uL (0.0-1.1) Eosinophils # (Auto) 0.0x10^3/uL (0.0-0.7) Basophils # (Auto) 0.0x10^3/uL (0.0-0.2) Segmented Neutrophils % 90% (35-66) Band Neutrophils % 4% (0-9) Lymphocytes % 4% (24-48) Monocytes % 2% (0-10) Platelet Estimate Adequate (ADEQUATE) Sodium Level 136mmol/L (136-145) Potassium Level 4.8mmol/L (3.5-5.1) Chloride Level 98mmol/L (98-107) Carbon Dioxide Level 20mmol/L (21-32) Anion Gap 18 (6-14) Blood Urea Nitrogen 22mg/dL (8-26) Creatinine 1.5mg/dL (0.7-1.3) Estimated GFR (Cockcroft-Gault) 59.1 Glucose Level 364mg/dL (70-99) Calcium Level 9.3mg/dL (8.5-10.1) Test 12/11/16 11:36 12/11/16 11:55 12/11/16 12:15 12/11/16 13:20 Glucose (Fingerstick) 395mg/dL (70-99) 399mg/dL (70-99) Sodium Level 135mmol/L (136-145) Potassium Level 4.7mmol/L (3.5-5.1) Chloride Level 99mmol/L (98-107) Carbon Dioxide Level 20mmol/L (21-32) Anion Gap 16 (6-14) Blood Urea Nitrogen 30mg/dL (8-26) Creatinine 1.7mg/dL (0.7-1.3) Estimated GFR (Cockcroft-Gault) 51.1 Glucose Level 399mg/dL (70-99) Calcium Level 9.3mg/dL (8.5-10.1) Urine Ketones (Stick) >=80mg/dL (NEG) Test 12/11/16 15:35 12/11/16 16:07 12/11/16 18:16 12/11/16 20:40 White Blood Count 18.5x10^3/uL (4.0-11.0) Red Blood Count 4.65x10^6/uL (4.30-5.70) Hemoglobin 13.8g/dL (13.0-17.5) Hematocrit 41.3% (39.0-53.0) Mean Corpuscular Volume 89fL (79-100) Mean Corpuscular Hemoglobin 30pg (25-35) Mean Corpuscular Hemoglobin Concent 34g/dL (31-37) Red Cell Distribution Width 14.0% (11.5-14.5) Platelet Count 269x10^3/uL (140-400) Neutrophils (%) (Auto) 78% (31-73) Lymphocytes (%) (Auto) 10% (24-48) Monocytes (%) (Auto) 12% (0-9) Eosinophils (%) (Auto) 0% (0-3) Basophils (%) (Auto) 0% (0-3) Neutrophils # (Auto) 14.4x10^3uL (1.8-7.7) Lymphocytes # (Auto) 1.9x10^3/uL (1.0-4.8) Monocytes # (Auto) 2.1x10^3/uL (0.0-1.1) Eosinophils # (Auto) 0.0x10^3/uL (0.0-0.7) Basophils # (Auto) 0.1x10^3/uL (0.0-0.2) Sodium Level 134mmol/L (136-145) Potassium Level 5.2mmol/L (3.5-5.1) Chloride Level 99mmol/L (98-107) Carbon Dioxide Level 22mmol/L (21-32) Anion Gap 13 (6-14) Blood Urea Nitrogen 31mg/dL (8-26) Creatinine 1.6mg/dL (0.7-1.3) Estimated GFR (Cockcroft-Gault) 54.8 Glucose Level 431mg/dL (70-99) Calcium Level 9.4mg/dL (8.5-10.1) Glucose (Fingerstick) 434mg/dL (70-99) 376mg/dL (70-99) 379mg/dL (70-99) Test 12/11/16 21:30 12/12/16 01:55 12/12/16 05:00 12/12/16 05:42 Glucose (Fingerstick) 327mg/dL (70-99) 226mg/dL (70-99) 413mg/dL (70-99) Sodium Level 138mmol/L (136-145) Potassium Level 5.1mmol/L (3.5-5.1) Chloride Level 101mmol/L (98-107) Carbon Dioxide Level 25mmol/L (21-32) Anion Gap 12 (6-14) Blood Urea Nitrogen 19mg/dL (8-26) Creatinine 1.1mg/dL (0.7-1.3) Estimated GFR (Cockcroft-Gault) 84.5 Glucose Level 365mg/dL (70-99) Calcium Level 8.9mg/dL (8.5-10.1) Test 12/12/16 06:50 Glucose (Fingerstick) 364mg/dL (70-99) Laboratory Tests Test 12/11/16 08:13 12/11/16 10:33 12/11/16 11:36 12/11/16 11:55 Glucose (Fingerstick) 481mg/dL (70-99) 459mg/dL (70-99) 395mg/dL (70-99) Sodium Level 135mmol/L (136-145) Potassium Level 4.7mmol/L (3.5-5.1) Chloride Level 99mmol/L (98-107) Carbon Dioxide Level 20mmol/L (21-32) Anion Gap 16 (6-14) Blood Urea Nitrogen 30mg/dL (8-26) Creatinine 1.7mg/dL (0.7-1.3) Estimated GFR (Cockcroft-Gault) 51.1 Glucose Level 399mg/dL (70-99) Calcium Level 9.3mg/dL (8.5-10.1) Test 12/11/16 12:15 12/11/16 13:20 12/11/16 15:35 12/11/16 16:07 Urine Ketones (Stick) >=80mg/dL (NEG) Glucose (Fingerstick) 399mg/dL (70-99) 434mg/dL (70-99) White Blood Count 18.5x10^3/uL (4.0-11.0) Red Blood Count 4.65x10^6/uL (4.30-5.70) Hemoglobin 13.8g/dL (13.0-17.5) Hematocrit 41.3% (39.0-53.0) Mean Corpuscular Volume 89fL (79-100) Mean Corpuscular Hemoglobin 30pg (25-35) Mean Corpuscular Hemoglobin Concent 34g/dL (31-37) Red Cell Distribution Width 14.0% (11.5-14.5) Platelet Count 269x10^3/uL (140-400) Neutrophils (%) (Auto) 78% (31-73) Lymphocytes (%) (Auto) 10% (24-48) Monocytes (%) (Auto) 12% (0-9) Eosinophils (%) (Auto) 0% (0-3) Basophils (%) (Auto) 0% (0-3) Neutrophils # (Auto) 14.4x10^3uL (1.8-7.7) Lymphocytes # (Auto) 1.9x10^3/uL (1.0-4.8) Monocytes # (Auto) 2.1x10^3/uL (0.0-1.1) Eosinophils # (Auto) 0.0x10^3/uL (0.0-0.7) Basophils # (Auto) 0.1x10^3/uL (0.0-0.2) Sodium Level 134mmol/L (136-145) Potassium Level 5.2mmol/L (3.5-5.1) Chloride Level 99mmol/L (98-107) Carbon Dioxide Level 22mmol/L (21-32) Anion Gap 13 (6-14) Blood Urea Nitrogen 31mg/dL (8-26) Creatinine 1.6mg/dL (0.7-1.3) Estimated GFR (Cockcroft-Gault) 54.8 Glucose Level 431mg/dL (70-99) Calcium Level 9.4mg/dL (8.5-10.1) Test 12/11/16 18:16 12/11/16 20:40 12/11/16 21:30 12/12/16 01:55 Glucose (Fingerstick) 376mg/dL (70-99) 379mg/dL (70-99) 327mg/dL (70-99) 226mg/dL (70-99) Test 12/12/16 05:00 12/12/16 05:42 12/12/16 06:50 Sodium Level 138mmol/L (136-145) Potassium Level 5.1mmol/L (3.5-5.1) Chloride Level 101mmol/L (98-107) Carbon Dioxide Level 25mmol/L (21-32) Anion Gap 12 (6-14) Blood Urea Nitrogen 19mg/dL (8-26) Creatinine 1.1mg/dL (0.7-1.3) Estimated GFR (Cockcroft-Gault) 84.5 Glucose Level 365mg/dL (70-99) Calcium Level 8.9mg/dL (8.5-10.1) Glucose (Fingerstick) 413mg/dL (70-99) 364mg/dL (70-99) Microbiology 12/10/16 Urine Culture - Preliminary, Resulted 12/10/16 Urine Culture Result 1 (DOYLE) - Preliminary, Resulted Medications Current Medications Ondansetron HCl (Zofran) 4 mg STK-MED ONCE .ROUTE ; Start 12/10/16 at 16:17; Stop 12/10/16 at 16:18; Status DC Ondansetron HCl (Zofran) 4 mg 1X ONCE IV Last administered on 12/10/16 16:20 ; Start 12/10/16 at 16:30; Stop 12/10/16 at 16:31; Status DC Famotidine (Pepcid) 20 mg 1X ONCE IVP Last administered on 12/10/16 18:40; Start 12/10/16 at 17:00; Stop 12/10/16 at 17:01; Status DC Ondansetron HCl (Zofran) 4 mg 1X ONCE IV ; Start 12/10/16 at 17:00; Stop at 17:01; Status DC Ondansetron HCl (Zofran) 4 mg PRN Q8HRS PRN IV NAUSEA/VOMITING; Start 12/10/16 at 18:00; Stop 12/10/16 at 23:13; Status DC Morphine Sulfate 2 mg PRN Q2HR PRN IV PAIN; Start 12/10/16 at 18:00; Stop 12/11 at 17:59; Status DC Acetaminophen (Tylenol) 650 mg PRN Q4HRS PRN PO FEVER Last administered on 12/10 21:33; Start 12/10/16 at 18:00; Stop 12/11/16 at 17:59; Status DC Insulin Aspart (Novolog) 0-7 UNITS TIDWMEALS SQ ; Start 12/11/16 at 08:00; Stop 12/11/16 at 15:11; Status DC Dextrose 12.5 gm PRN Q15MIN PRN IV SEE COMMENTS; Start 12/10/16 at 18:00; Stop 12/10/16 at 23:12; Status DC Prochlorperazine Edisylate 5 mg 5 mg 1X ONCE IV Last administered on 19:28; Start 12/10/16 at 19:15; Stop 12/10/16 at 19:16; Status DC Potassium Chloride/Sodium Chloride (Iv Sodium Chloride 0.45%) 1,015 ml @ 150 mls/hr Q6H46M IV Last administered on 12/11/16 06:21; Start 12/11/16 at 00:00 ; Stop 12/11/16 at 15:37; Status DC Metoclopramide HCl (Reglan) 10 mg TID IV Last administered on 12/11/16 20:33; Start 12/10/16 at 23:30 Dextrose 12.5 gm PRN Q15MIN PRN IV SEE COMMENTS; Start 12/10/16 at 23:15 Ondansetron HCl (Zofran) 8 mg PRN Q8HRS PRN IV NAUSEA/VOMITING; Start 12/10/16 at 23:15 Pantoprazole Sodium (Protonix Vial) 40 mg DAILYAC IVP Last administered on 12/11 08:49; Start 12/11/16 at 07:30 Acetaminophen/ Aspirin/Caffeine (Excedrin Migraine) 1 tab PRN Q6HRS PRN PO MIGRAINE HEADACHE; Start 12/10/16 at 23:45 Insulin Aspart (Novolog) 8 units 1X ONCE SQ Last administered on 12/11/16 00: 42; Start 12/11/16 at 00:00; Stop 12/11/16 at 00:01; Status DC Insulin Aspart (Novolog) 25 units 1X ONCE SQ Last administered on 12/11/16 08 :52; Start 12/11/16 at 08:30; Stop 12/11/16 at 08:31; Status DC Insulin Detemir (Levemir) 10 units 1X ONCE SQ ; Start 12/11/16 at 10:30; Stop 12/11/16 at 10:33; Status DC Insulin Aspart (Novolog) 9 units 1X ONCE SQ Last administered on 12/11/16 12: 40; Start 12/11/16 at 12:30; Stop 12/11/16 at 12:47; Status DC Insulin Aspart (Novolog) 0-9 UNITS TIDWMEALS SQ ; Start 12/11/16 at 17:00 Dextrose 12.5 gm 12.5 gm PRN Q15MIN PRN IV SEE COMMENTS; Start 12/11/16 at 15: 15; Status UNV Sodium Chloride (Iv Sodium Chloride 0.9% 1000ml Bag) 1,000 ml @ 150 mls/hr Q6H40M IV Last administered on 12/12/16 06:16; Start 12/11/16 at 15:30 Insulin Aspart (Novolog) 15 units 1X ONCE SQ Last administered on 12/11/16 17 :21; Start 12/11/16 at 17:00; Stop 12/11/16 at 17:01; Status DC Insulin Aspart (Novolog) 15 units 1X STAT SQ Last administered on 12/11/16 20 :55; Start 12/11/16 at 20:47; Stop 12/11/16 at 20:48; Status DC Insulin Aspart (Novolog) 15 units 1X ONCE SQ Last administered on 12/12/16 06 :18; Start 12/12/16 at 06:30; Stop 12/12/16 at 06:31; Status DC Active Scripts Active Reported Omeprazole 20 Mg Tablet. 1 Tab PO DAILY Humalog (Insulin Lispro) 100 Unit/1 Ml Vial 100 Unit SQ Vitals/I & O Vital Sign - Last 24 Hours 12/11/16 12/11/16 12/11/16 12/11/16 08:00 08:00 11:00 15:00 Temp 97.7 97.9 98.6 97.7 97.9 98.6 Pulse 100 114 107 Resp 09 10 16 B/P 137/45 127/65 150/73 Pulse Ox 98 O2 Delivery Room Air Room Air Room Air Room Air O2 Flow Rate 96.0 94.0 12/11/16 12/11/16 12/12/16 19:35 20:00 03:35 Temp 98.1 97.7 98.1 97.7 Pulse 109 89 Resp 18 16 B/P 139/73 133/64 Pulse Ox 97 96 O2 Delivery Room Air Room Air Room Air Intake and Output 12/11/16 12/11/16 12/12/16 15:00 23:00 07:00 Intake Total 300 ml Output Total 1050 ml Balance -1050 ml 300 ml NICK OBRIEN MD Dec 12, 2016 07:09
[2016-12-12 07:17] LABS: HEMOGLOBIN 12.9 g/dL (13.0-17.5); RED BLOOD COUNT 4.34 x10^6/uL (4.30-5.70); RED CELL DISTRIBUTION WIDTH 14.2 % (11.5-14.5); WHITE BLOOD COUNT 10.3 x10^3/uL (4.0-11.0)
[2016-12-12] MEDS: INSULIN ASPART 300 UNITS/3 ML INSULN.PEN SQ SCH ×2 (08:00→12:00)
[2016-12-12] MEDS: METOCLOPRAMIDE HCL 10 MG/2 ML VIAL. IV SCH (08:22)
[2016-12-12] MEDS: PANTOPRAZOLE IV PUSH 40 MG VIAL. IVP SCH (08:23)
[2016-12-12 11:00] VITALS: BP 146/75
== END 2016-12-12 12:30 | disposition home or self-care (01) | DRG 683 ==
LOC: ER 15:20 → ED HOLD 18:52 → 6 SOUTH 21:24
PROVIDERS: ADMIT Internal Medicine Hematology & Oncology; ATTEND Internal Medicine Hematology & Oncology
DX: N17.0 Acute kidney failure with tubular necrosis (principal); E87.2 Acidosis; E10.649 Type 1 diabetes mellitus with hypoglycemia without coma; E86.0 Dehydration; R55 Syncope and collapse; E10.65 Type 1 diabetes mellitus with hyperglycemia; D72.829 Elevated white blood cell count, unspecified; Z96.41 Presence of insulin pump (external) (internal); Z83.3 Family history of diabetes mellitus
CPT/HCPCS: 36415; 70450; 71010; 80048; 80076; 81001; 81002; 82947; 83036; 85007; 85027; 87086; 93005; 96374; 96375; C9113; G0481; J0780; J1815; J2405; J2765; J7030; S0028; 99285-25

== ENCOUNTER → 2017-09-13 | Day surgery (SDC) | payer BC ==
[~2017-09-13] MED LIST changes: +HYDROmorphone 2 MG/ML VIAL IV; -INSU100V SQ; +LIDOCAINE 1% PF 2 ML VIAL. ID; +LIDOCAINE 2% PF Vial for OR 5 ML VIAL.; +MORPHINE SULFATE 2 MG/ML DISP.SYRIN. IV; +ONDANSETRON PF 4 MG/2 ML VIAL. IV; +PROCHLORPERAZINE 10 MG/2 ML VIAL. IV; +PROPOFOL 40 ML IV; +fentaNYL PF VIAL 100 MCG/2 ML VIAL IV
[2017-09-13] MEDS: IV RINGERS,LACTATED 1000ML 1,000 ML IV (08:00)
== END | disposition home or self-care (01) ==
LOC: ENDOS 07:33
DX: K21.0 Gastro-esophageal reflux disease with esophagitis (principal); E11.9 Type 2 diabetes mellitus without complications; Z87.39 Personal history of other diseases of the musculoskeletal system and connective tissue; Z86.39 Personal history of other endocrine, nutritional and metabolic disease
CPT/HCPCS: 43235; J2704

== ENCOUNTER 2018-05-27 12:45 | Emergency (ER) | payer BC, OTHER ==
[~2018-05-27] VITALS: Ht 180.3 cm; Wt 102.1 kg
[~2018-05-27 12:45] MED LIST changes: -HYDROmorphone 2 MG/ML VIAL IV; +INSU100V SQ; -LIDOCAINE 1% PF 2 ML VIAL. ID; -LIDOCAINE 2% PF Vial for OR 5 ML VIAL.; -MORPHINE SULFATE 2 MG/ML DISP.SYRIN. IV; +OMEP20TA8 PO; -ONDANSETRON PF 4 MG/2 ML VIAL. IV; -PROCHLORPERAZINE 10 MG/2 ML VIAL. IV; -PROPOFOL 40 ML IV; -fentaNYL PF VIAL 100 MCG/2 ML VIAL IV
[2018-05-27 12:52] VITALS: BP 153/77
[2018-05-27] MEDS ORDERED: IV NORMAL SALINE 1000ML BAG 1,000 ML IV ONE (13:15)
[2018-05-27] MEDS ORDERED: ONDANSETRON PF 4 MG/2 ML VIAL. IV ONE ×2 (13:15)
--- NOTE | 2018-05-27 14:22 | PHYS DOC ---
Past Medical History Past Medical History: Diabetes-Type I, GERD Past Surgical History: No Surgical History Additional Past Surgical Histo: L ANKLE Alcohol Use: Occasionally Drug Use: None Adult General Chief Complaint Chief Complaint: ALTERED MENTAL STATUS HPI HPI Patient is a 22 year old male who presents with hypoglycemia. Patient is a known type I diabetic. He has an insulin pump that is functional. He forgot to have breakfast this morning. The patient was found to be unresponsive by his parents. His mother tried to put some cake icing in his mouth and called 911. On arrival, EMS reports that the patient sugar was 70 and that he was recovering. The patient was given an additional amp of D50 in route to the emergency room. On arrival to the ER, his blood glucose level was stable. Patient has not been ill lately. No fever or chills. No cough. No abdominal pain. He has been at baseline health otherwise. Review of Systems Review of Systems Constitutional: Denies fever or chills Eyes: Denies change in visual acuity HENT: Denies nasal congestion or sore throat Respiratory: Denies cough or shortness of breath Cardiovascular: No additional information GI: Denies abdominal pain : Denies dysuria or hematuria Integument: Denies rash or skin lesions Neurologic: generalized MARIN Endocrine: Denies polyuria All other systems were reviewed and found to be within normal limits, except as documented in this note. Current Medications Current Medications Current Medications Medications (Trade) Dose Ordered Sig/Jamal Start Time Stop Time Status Last Admin Dose Admin Ondansetron HCl (Zofran) 4 mg 1X ONCE 05/27/18 13:15 05/27/18 13:16 UNV Sodium Chloride 1,000 ml @ 1,000 mls/hr 1X ONCE 05/27/18 13:15 05/27/18 14:14 DC 05/27/18 13:13 1,000 MLS/HR Allergies Allergies Allergies Coded Allergies Type Severity Reaction Last Updated Verified No Known Drug Allergies 09/13/17 No Physical Exam Physical Exam Constitutional: Well developed, well nourished HENT: Normocephalic, atraumatic, bilateral external ears normal Eyes: PERRLA, EOMI, conjunctiva normal Neck: Normal range of motion, no tenderness Cardiovascular:Heart rate regular rhythm Lungs & Thorax: Bilateral breath sounds clear Abdomen: Bowel sounds normal, soft, no tenderness Skin: Warm, dry, no erythema Extremities: No edema Neurologic: Alert and oriented X 3 Psychologic: Affect normal Current Patient Data Vital Signs Vital Signs Date Time Temp Pulse Resp B/P (MAP) Pulse Ox O2 Delivery O2 Flow Rate FiO2 05/27/18 12:52 98.4 87 17 153/77 (102) 98 Room Air 98.4 Lab Values Laboratory Tests Test 05/27/18 12:48 Glucose (Fingerstick) 194 mg/dL (70-99) H EKG EKG [] Radiology/Procedures Radiology/Procedures [] Course & Med Decision Making Course & Med Decision Making Pertinent Labs and Imaging studies reviewed. (See chart for details) Patient is evaluated in the emergency department following a hypoglycemic episode. He does not have any positive review of systems that is concerning for infection. He has a continuous insulin pump and did not take breakfast this morning. She is observed in the emergency department for 2 hours. He was given a meal tray to eat which she did tolerate although he had some mild nausea. His blood glucose level remained stable. The patient seems very competent to manage his blood glucose levels and is very knowledgeable about his disease. Plan is for discharge home. He is encouraged to eat. Also to follow-up with his primary care doctor or return to the ER for any new or worsening symptoms. Dragon Disclaimer Dragon Disclaimer This electronic medical record was generated, in whole or in part, using a voice recognition dictation system. Departure Departure Impression: Primary Impression: Hypoglycemia due to insulin Disposition: 01 HOME, SELF-CARE Condition: GOOD Patient Instructions: Hypoglycemia (Low Blood Sugar) KATHERINE GUTIERREZ DO May 27, 2018 14:22
[2018-05-27] MEDS ORDERED: PROCHLORPERAZINE 10 MG/2 ML VIAL. IV ONE (14:30)
[2018-05-27] MEDS ORDERED: diphenhydrAMINE 50 MG/ML VIAL IVP ONE (14:30)
[2018-05-27 15:08] LABS: BASO % 0 % (0-3); EOS % 0 % (0-3); HEMATOCRIT 45.2 % (39.0-53.0); HEMOGLOBIN 15.8 g/dL (13.0-17.5); LYMPH % 7 % (24-48); MEAN CORPUSCULAR HEMOGLOBIN 31 pg (25-35); MEAN CORPUSCULAR HGB CONC 35 g/dL (31-37); MEAN CORPUSCULAR VOLUME 88 fL (79-100); MONO # 0.8 x10^3/uL (0.0-1.1); MONO % 5 % (0-9); NEUT # 13.3 x10^3uL (1.8-7.7); NEUT % 88 % (31-73); PLATELET COUNT 261 x10^3/uL (140-400); RED BLOOD COUNT 5.16 x10^6/uL (4.30-5.70); RED CELL DISTRIBUTION WIDTH 13.2 % (11.5-14.5); WHITE BLOOD COUNT 15.1 x10^3/uL (4.0-11.0)
[2018-05-27 15:17] LABS: CALCIUM 8.6 mg/dL (8.5-10.1); GFR 93.4; POTASSIUM 3.7 mmol/L (3.5-5.1)
[2018-05-27 15:28] LABS: % BANDS 4 % (0-9); % LYMPHS 5 % (24-48); % MONOS 7 % (0-10); % SEGS 84 % (35-66); PLT ESTIMATE ADEQUATE (ADEQUATE)
--- NOTE | 2018-05-27 15:29 | RAD ---
CT HEAD WO CONTRAST Clinical indications: SYNCOPAL EPISODE, HX OF DIABETES PT STATES LOW BLOOD SUGAR COMPARISON: December 10, 2016. Technique: Noncontrast axial cross sectional scanning of the head was performed. PQRS compliance Statement One or more of the following individualized dose reduction techniques were utilized for this study: 1. Automated exposure control 2. Adjustment of the mA and/or kV according to patient size 3. Use of iterative reconstruction technique Findings: No acute intracranial hemorrhage or midline shift or mass-effect or hydrocephalus or extra-axial fluid collection is seen. No focal hypodense area or sulci effacement is seen to indicate an acute infarct or edema radiographically. No skull fracture or pneumocephalus is seen. No opacification of the mastoid sinuses or the paranasal sinuses is seen. The maxillary sinuses are not completely seen in this study. Impression: No acute intracranial abnormality is seen. Electronically signed by: Yash Barahona MD (05/27/2018 3:25 PM) [facility]
[2018-05-27 16:19] LABS: BILIRUBIN,URINE NEGATIVE (NEG); CLARITY,URINE CLEAR; COLOR,URINE YELLOW; NITRITE,URINE NEGATIVE (NEG); PH,URINE 5.5; PROTEIN,URINE NEGATIVE (NEG-TRACE); UROBILINOGEN,URINE 0.2 mg/dL (0.2 mg/dL)
[2018-05-27 16:24] LABS: BACTERIA,URINE 0 /HPF (0-FEW); RBC,URINE 0 /HPF (0-2); WBC,URINE OCC /HPF (0-4)
== END 2018-05-27 17:00 | disposition home or self-care (01) ==
LOC: ER 12:45
DX: E10.649 Type 1 diabetes mellitus with hypoglycemia without coma (principal); K21.9 Gastro-esophageal reflux disease without esophagitis
CPT/HCPCS: 36415; 70450; 80048; 81001; 82962; 85007; 85025; 96374; 96375; 99285; J0780; J1200; J2405; J7030